=== PATIENT | female | born 1970 | race Caucasian/White ===

== ENCOUNTER 2017-10-20 10:16 | Emergency (ER) | payer OTHER ==
[~2017-10-20] VITALS: Ht 172.7 cm; Wt 71.8 kg
[~2017-10-20 10:16] MED LIST: HYDROCODONE BT1 EACH PO; NEXIUM40 MG PO; PEN-VEE K,VEET500 MG PO
[2017-10-20] MEDS ORDERED: MOTRIN800 MG PO (12:14)
[2017-10-20] MEDS ORDERED: ZOFRAN4 MG PO (12:14)
[2017-10-20 12:30] VITALS: BP 122/78
== END 2017-10-20 12:32 | disposition home or self-care (01) ==
LOC: EME 10:16
DX: G43.109 Migraine with aura, not intractable, without status migrainosus (principal); J32.9 Chronic sinusitis, unspecified; K21.9 Gastro-esophageal reflux disease without esophagitis; Z87.19 Personal history of other diseases of the digestive system; Z87.442 Personal history of urinary calculi
CPT/HCPCS: 70450; 70486; 99281; 99284; J1885; J2765